=== PATIENT | female | born 1995 | race Caucasian/White ===

== ENCOUNTER 2016-04-23 11:54 | Inpatient (IN) | payer OTHER ==
[~2016-04-23] VITALS: Ht 160 cm; Wt 65.0 kg
[~2016-04-23 11:54] MED LIST: ACET50TA PO; IBUP60TA PO; PRE-TAB3 PO
[2016-04-23] MEDS ORDERED: LR 1,000 ML IV SCH (12:15)
[2016-04-23] MEDS ORDERED: LACTATED RINGER'S 1000 ML IV STA (12:15)
[2016-04-23 12:51] LABS: MEAN CORPUSCULAR HEMOGLOBIN 24.5 pg (27.0-33.0); MEAN CORPUSCULAR HGB CONC 32.3 g/dl (32.0-36.5); RED CELL DISTRIBUTION WIDTH 14.5 % (11.5-14.5); WHITE BLOOD COUNT 10.3 K/mm3 (4.0-10.0)
--- NOTE | 2016-04-23 13:18 | HPE ---
DATE OF ADMISSION: 04/23/2016 A 20-year-old 2, para 1, estimated date of delivery 05/05/2016, here at 38 weeks 2 days with reports of onset of uterine contractions at 600. Denies loss of fluid or bleeding. Fetus is active. Last normal menstrual period 07/16/2015 for initial expected date of delivery (EILEEN) of 04/21/2016. Conceived on progesterone-only pills. Sonogram at 8 weeks confirmed date of 05/05/2016. Anatomy scan within normal limits. OBSTETRICAL HISTORY: February 2015 normal spontaneous vaginal viable female 7 pounds 1 ounce. She has no known drug allergies. Medical-surgical is noncontributory. Family is noncontributory. SOCIAL: Single. Father of the baby and family present and supportive. Denies tobacco, alcohol, or drugs. OBJECTIVE: Prepregnancy weight 110, total weight gain 37 pounds. O+, antibody negative, rubella immune, [facility] ([facility]) (test), hepatitis B, hepatitis C, HIV, gonorrhea, and Chlamydia all negative. Declined genetic screening. 1-hour glucose 83. Group B Streptococcus is negative. Uncomfortable. Breathing with contractions. Vital signs are stable. Heart rate is regular. Respirations are easy. Abdomen is soft, gravid, longitudinal lie. Uterine contractions 2-3 minutes apart for 60 seconds and moderate. heart 135. Moderate variability. Accelerations noted. Cervix is 6 cm, 100%, and zero station. ASSESSMENT: Multiparous at term, category 1 tracing, active labor. PLAN: Admit. The patient plans epidural. Anticipate vaginal delivery.
[2016-04-23] MEDS ORDERED: FENTANYL 2MCG/ML ROPIVACAINE 0.2% NACL 250 ML CADD As Ordered ONE (14:04)
[2016-04-23] MEDS ORDERED: DOCUSATE SODIUM 100 MG CAP PO PRN (18:30)
[2016-04-23] MEDS ORDERED: DIBUCAINE 1% OINTMENT 30GM TOP PRN (18:30)
[2016-04-23] MEDS ORDERED: RHOGAM 300 MCG (1500 IU) INJ (J2790) IM SCH (18:30)
[2016-04-23] MEDS ORDERED: ACETAMINOPHEN 500 MG TAB PO PRN (18:30)
[2016-04-23] MEDS ORDERED: ANUSOL HC CREAM 30GM TOP PRN (18:30)
[2016-04-23] MEDS ORDERED: METHYLERGONOVINE MALEATE 0.2 MG TAB PO PRN (18:30)
[2016-04-23] MEDS ORDERED: MEASLES,MUMPS,RUBELLA VACCINE INJ (MMR-II) (90707) SC SCH (18:30)
[2016-04-23] MEDS ORDERED: OXYTOCIN DRIP 30 UNITS in APPROPRIATE DILUENT 1 EA IV SCH (18:30)
[2016-04-23] MEDS ORDERED: MOM 30ML SUSPENSION UDC PO PRN (18:30)
[2016-04-23 19:21] VITALS: BP 137/61
--- NOTE | 2016-04-23 19:38 | DN ---
DATE: 04/23/2016 DELIVERY NOTE: Comfortable with epidural. Artificial rupture of membranes, clear fluid 1505. Fully dilated 1750. Viable male delivered right occiput anterior (DOMINGO) at 1758, spontaneous respirations. Transitioned on maternal abdomen. Cord doubly clamped and cut once pulsations ceased. scores 9 and 9. Placenta Moss and intact with three-vessel cord and trailing membranes at 1807. Fundus firmed with massage and intravenous (IV) Pitocin bolus. First-degree perineal laceration repaired with 3-0 Vicryl Rapide. Estimated blood loss 150 mL. Sponge, sharp and instrument count correct. weight 7 pounds, 11 ounces, 3484 grams. Mom and baby doing well.
[2016-04-23 20:13] VITALS: BP 109/72
[2016-04-23] MEDS: FERROUS SULFATE 325MG TAB PO SCH (21:46)
[2016-04-23] MEDS: IBUPROFEN 800 MG TAB PO PRN (21:47)
[2016-04-24] MEDS ORDERED: OXYTOCIN INJ 10 UNITS/ML VIAL (J2590) IV STA (00:02)
[2016-04-24 06:08] VITALS: BP 106/59
[2016-04-24] MEDS: IBUPROFEN 800 MG TAB PO PRN ×2 (06:08→22:20)
[2016-04-24] MEDS: FERROUS SULFATE 325MG TAB PO SCH ×2 (09:15→21:57)
[2016-04-24] MEDS: PRENATAL VITAMIN TAB PO SCH (09:15)
[2016-04-24 18:29] VITALS: BP 125/76
[2016-04-25 05:38] VITALS: BP 122/68
[2016-04-25] MEDS: FERROUS SULFATE 325MG TAB PO SCH (08:24)
[2016-04-25] MEDS: PRENATAL VITAMIN TAB PO SCH (08:24)
[2016-04-25] MEDS ORDERED: IBUP-1114 PO (09:08)
== END 2016-04-25 12:10 | disposition home or self-care (01) | DRG 560 ==
LOC: M LDI 11:54 → M OBS 19:49
PROVIDERS: ADMIT Advanced Practice Midwife; ATTEND Advanced Practice Midwife
PROC: 10E0XZZ Delivery of Products of Conception, External Approach (ICD-10-PCS; principal; 2016-04-23)
PROC: 0HQ9XZZ Repair Perineum Skin, External Approach (ICD-10-PCS; 2016-04-23)
PROC: 10907ZC Drainage of Amniotic Fluid, Therapeutic from Products of Conception, Via Natural or Artificial Opening (ICD-10-PCS; 2016-04-23)
DX: O70.0 First degree perineal laceration during delivery (principal); Z37.0 Single live birth; Z3A.38 38 weeks gestation of pregnancy

== ENCOUNTER → 2016-07-01 | Outpatient (REF) | payer OTHER ==
[~2016-07-01] MED LIST changes: +IBUP-1114 PO
== END ==
LOC: M LAB REF 17:01
PROVIDERS: ATTEND Advanced Practice Midwife
DX: Z30.430 Encounter for insertion of intrauterine contraceptive device (principal)

== ENCOUNTER 2017-11-07 18:35 | Emergency (ER) | payer OTHER ==
[2017-11-07] MEDS: IBUPROFEN 600 MG TAB PO (19:27)
== END 2017-11-07 19:28 | disposition home or self-care (01) ==
LOC: M ED 18:35
DX: S83.001A Unspecified subluxation of right patella, initial encounter (principal); X50.9XXA Other and unspecified overexertion or strenuous movements or postures, initial encounter; Y92.830 Public park as the place of occurrence of the external cause
CPT/HCPCS: 99284

== ENCOUNTER → 2017-11-22 | Outpatient (REF) | payer OTHER | LOC: M LAB REF 13:35 | DX: Z12.4 Encounter for screening for malignant neoplasm of cervix (principal) ==

== ENCOUNTER 2018-03-24 10:30 | Day surgery (SDC) | payer OTHER ==
[2018-03-24] MEDS ORDERED: dexameTHASONE 10 MG/1 ML VIAL PRES.FREE (J1100) ×2 (10:31)
[2018-03-24] MEDS ORDERED: EPINEPHrine INJ 1 MG/ML 1ML AMP ×2 (10:31)
[2018-03-24] MEDS ORDERED: ROPIvacaine 0.5% 30 ML INJECTION (J2795 PER 1MG) ×2 (10:31)
[2018-03-24] MEDS ORDERED: LR 1,000 ML IV ×4 (10:45→16:15)
[2018-03-24] MEDS ORDERED: ceFAZolin 2 GM/D5W 50 ML IV BAG (J0690 PER 500MG) As Ordered ×2 (11:14)
[2018-03-24 11:20] LABS: CONTROL LINE UCG INT CTR LINE PRESENT; URINE PREG TEST NEGATIVE (NEGATIVE)
[2018-03-24] MEDS ORDERED: fentaNYL 100 MCG/2 ML INJECTION (J3010) As Ordered ×4 (11:32→14:17)
[2018-03-24] MEDS ORDERED: MIDAZOLAM INJ 2 MG/2 ML VIAL (J2250) As Ordered ×6 (11:33→14:17)
[2018-03-24] MEDS ORDERED: PROPOFOL 200 MG/20 ML VIAL As Ordered ×2 (11:59)
[2018-03-24] MEDS ORDERED: fentaNYL 250 MCG/5 ML INJECTION (J3010) As Ordered ×2 (11:59)
[2018-03-24] MEDS ORDERED: LIDOCAINE 2% INJ 100 MG/5 ML SDV (FOR ANES.) As Ordered ×2 (11:59)
[2018-03-24] MEDS: fentaNYL 100 MCG/2 ML INJECTION (J3010) IV ×10 (12:00→16:35)
[2018-03-24] MEDS: MIDAZOLAM INJ 2 MG/2 ML VIAL (J2250) IV ×4 (12:00→16:45)
[2018-03-24] MEDS: BUPIVACAINE HCL 0.5% 30 ML VIAL As Ordered ×2 (14:01)
[2018-03-24] MEDS ORDERED: METOCLOPRAMIDE INJ 10MG/2ML VIAL (J2765) As Ordered ×2 (14:43)
[2018-03-24] MEDS ORDERED: ONDANSETRON 4MG/2ML VIAL (J2405) As Ordered ×4 (14:43→16:13)
[2018-03-24] MEDS ORDERED: dexameTHASONE 4 MG/ML 1ML VIAL (J1100) As Ordered ×4 (14:43)
[2018-03-24] MEDS ORDERED: KETOROLAC 60 MG/2 ML VIAL (J1885) As Ordered ×2 (14:43)
[2018-03-24] MEDS ORDERED: HYDROmorphone HCL 2 MG/ML 1ML VIAL (J1170) As Ordered ×2 (15:09)
[2018-03-24] MEDS ORDERED: NORCO, ANEXSIA 5/325MG TABLET (HYDROcodone/ACETAMINOPHEN) As Ordered ×2 (16:13)
[2018-03-24] MEDS ORDERED: HYDROMORPHONE HCL 0.5 MG/ 0.5 ML SYRINGE (J1170 PER 1) IV ×2 (16:15)
[2018-03-24] MEDS: ONDANSETRON 4MG/2ML VIAL (J2405) IV ×2 (16:15)
[2018-03-24] MEDS: NORCO, ANEXSIA 5/325MG TABLET (HYDROcodone/ACETAMINOPHEN) PO ×4 (16:27→16:57)
[2018-03-24] MEDS ORDERED: ONDANSETRON 4MG/2ML VIAL (J2405) IV ×2 (19:45)
[2018-03-24] MEDS ORDERED: PERCOCET 5MG/325MG TAB PO ×2 (19:45)
[2018-03-24] MEDS: LR 1,000 ML IV ×2 (21:35)
[2018-03-24] MEDS: METOCLOPRAMIDE INJ 10MG/2ML VIAL (J2765) IV ×2 (23:10)
[2018-03-25] MEDS: ASPIRIN 325 MG TAB PO ×2 (07:51)
[2018-03-25] MEDS: PERCOCET 5MG/325MG TAB PO ×2 (07:52)
== END 2018-03-25 11:35 | disposition home or self-care (01) ==
LOC: M SDC 10:30 → M MS5PR 19:34
DX: M22.02 Recurrent dislocation of patella, left knee (principal); M94.261 Chondromalacia, right knee; K21.9 Gastro-esophageal reflux disease without esophagitis
CPT/HCPCS: 29870

== ENCOUNTER 2018-10-03 19:17 | Emergency (ER) | payer OTHER ==
[~2018-10-03] VITALS: Ht 157.5 cm; Wt 59.1 kg
[2018-10-03 19:17] VITALS: BP 133/78
[~2018-10-03 19:17] MED LIST changes: -ACET50TA PO; +BAYE325T12 PO; +IBUP-1022 PO; +IBUP600T42 PO; -IBUP60TA PO; +MAPA500T2 PO; +PERC5TAB12 PO
[2018-10-03] MEDS ORDERED: FLUORESCEIN OPHTH 1 MG STRIP OU ONE (20:45)
[2018-10-03] MEDS ORDERED: CIPROFLOXACIN 0.3% OPHTH SOLN 2.5ML OD STA (20:52)
[2018-10-03] MEDS ORDERED: CIPR0.3S OD (20:55)
== END 2018-10-03 21:33 | disposition home or self-care (01) ==
LOC: M ED 19:17
DX: S05.01XA Injury of conjunctiva and corneal abrasion without foreign body, right eye, initial encounter (principal); W51.XXXA Accidental striking against or bumped into by another person, initial encounter; Y92.89 Other specified places as the place of occurrence of the external cause